=== PATIENT | male | born 1990 | race Caucasian/White ===

== ENCOUNTER 2016-09-22 22:46 | Emergency (ER) | payer SELFPAY ==
[~2016-09-22] VITALS: Ht 177.8 cm; Wt 89.3 kg
[2016-09-22 22:49] VITALS: BP 150/106
== END 2016-09-22 23:58 | disposition home or self-care (01) ==
LOC: ED 23:52
DX: I82.5Z2 Chronic embolism and thrombosis of unspecified deep veins of left distal lower extremity (principal); F41.1 Generalized anxiety disorder
CPT/HCPCS: 99283

== ENCOUNTER 2016-09-24 10:42 | Emergency (ER) | payer OTHER ==
[~2016-09-24] VITALS: Ht 175.3 cm; Wt 89.9 kg
[2016-09-24 10:43] VITALS: BP 148/107
== END 2016-09-24 11:31 | disposition home or self-care (01) ==
LOC: ED 11:27
DX: F41.9 Anxiety disorder, unspecified (principal); F43.10 Post-traumatic stress disorder, unspecified; F41.1 Generalized anxiety disorder; G89.29 Other chronic pain; Z76.0 Encounter for issue of repeat prescription; Z86.718 Personal history of other venous thrombosis and embolism
CPT/HCPCS: 99281